=== PATIENT | female | born 1995 ===

== ENCOUNTER 2025-07-27 07:03 | Inpatient (IN) | payer OTHER ==
[2025-07-27] MEDS ORDERED: Bicitra 30 ML UDCUP PO PRN (07:38)
[2025-07-27] MEDS ORDERED: Ondansetron PF 4 MG/2 ML Vial IVP PRN ×4 (07:38→15:03)
[2025-07-27] MEDS ORDERED: Famotidine/PF 20 mg/2ml Vial SLOW IVP PRN (07:38)
[2025-07-27] MEDS ORDERED: Oxytocin 30 units/NS 500 ML 500 ML IV SCH ×2 (07:38→15:03)
[2025-07-27 07:43] VITALS: BMI 43.2
[2025-07-27 08:14] LABS: Hematocrit 37.4 % (34.9-44.5); Hemoglobin 11.8 g/dL (12.0-15.5); Mean Corpuscular Hemoglobin 25.5 pg (27.0-33.0); Mean Corpuscular Volume 80.8 fL (81.6-98.3); Platelet Count 271 10x3/uL (150-450); Red Blood Cell (RBC) Count 4.63 10x6/uL (3.90-5.03); White Blood Cell (WBC) Count 7.84 10x3/uL (3.5-10.5)
[2025-07-27 08:25] LABS: ALT (SGPT) 8 U/L (Less than 34); AST (SGOT) 17 U/L (11-34); Albumin 2.9 g/dL (3.1-4.5); Alkaline Phosphatase 215 U/L (40-110); Anion Gap 14 mmol/L (10-20); BUN (Urea Nitrogen) 12 mg/dL (7.0-18.7); Bilirubin, Total 0.2 mg/dL (0.3-1.2); Calc. Creatinine Clearance 238 mL/min (70-130); Calcium 8.7 mg/dL (7.8-10.44); Carbon Dioxide 21 mmol/L (22-29); Chloride 107 mmol/L (98-107); Globulin 3.1 g/dL (2.4-3.5); Glucose 146 mg/dL (70-105); Potassium 4.5 mmol/L (3.5-5.1); Sodium 137 mmol/L (136-145)
[2025-07-27 08:45] LABS: Syphilis Antibody Index 0.04 S/CO (<1.00 Non-Reactive)
[2025-07-27 08:46] LABS: Hep B Surf Ag - L&D Non-Reactive S/CO (NonReactive)
[2025-07-27] MEDS ORDERED: HYDROmorphone 0.5 MG/0.5 ML SYRINGE SLOW IVP PRN (10:38)
[2025-07-27] MEDS ORDERED: diphenhydrAMINE 50 MG/ML VIAL IVP PRN (10:38)
[2025-07-27] MEDS ORDERED: Meperidine HCl/PF 25 MG (1 mL) VIAL SLOW IVP PRN (10:38)
[2025-07-27] MEDS ORDERED: Communication Order-Pharmacy FS SCH (10:45)
[2025-07-27] MEDS: hydrALAZINE 20 MG/ML VIAL SLOW IVP PRN (11:23)
[2025-07-27] MEDS: Ketorolac Tromethamine 30 MG (1 mL) VIAL IVP SCH (12:51)
[2025-07-27] MEDS: NIFEdipine XL 30 MG ER.TAB PO SCH (12:52)
[2025-07-27] MEDS ORDERED: hydrALAZINE 20 MG/ML VIAL SLOW IVP PRN ×3 (13:45→15:03)
[2025-07-27] MEDS ORDERED: NIFEdipine 10 MG CAP PO PRN ×2 (13:45)
[2025-07-27] MEDS ORDERED: Dextrose 50% Abboject 50 ML SYRINGE SLOW IVP PRN (15:03)
[2025-07-27] MEDS ORDERED: Lanolin Ointment 7 GM TUBE TOP PRN (15:03)
[2025-07-27] MEDS ORDERED: Bisacodyl 10 MG SUPP PR PRN (15:03)
[2025-07-27] MEDS ORDERED: Glucagon 1 MG/ML KIT IM PRN (15:03)
[2025-07-27] MEDS ORDERED: diphenhydrAMINE 25 MG CAP PO PRN (15:03)
[2025-07-27] MEDS: PHENYLEPHRINE-NS 100 MCG/ML 10 ML SYRINGE ONE (16:56)
[2025-07-27] MEDS: NIFEdipine 10 MG CAP ONE (16:57)
[2025-07-27] MEDS ORDERED: HYDROcodone/Acetaminophen 5/325 mg Tablet PO PRN (22:46)
[2025-07-28] MEDS: Ferrous Sulfate 325 MG TAB PO SCH (03:06)
[2025-07-28] MEDS: Ketorolac Tromethamine 30 MG (1 mL) VIAL IVP PRN (05:00)
[2025-07-28] MEDS: NIFEdipine XL 30 MG ER.TAB PO SCH (08:30)
[2025-07-28] MEDS ORDERED: NIFEdipine XL 30 MG ER.TAB PO SCH (09:00)
[2025-07-28] MEDS: Ibuprofen 800 MG TAB PO SCH (16:05)
[2025-07-28] MEDS: HYDROcodone/Acetaminophen 5/325 mg Tablet PO PRN (19:41)
[2025-07-28] MEDS: Simethicone Chewable 80 MG TAB PO PRN (19:41)
[2025-07-28] MEDS: Lantus 1000 UNITS/10 ML VIAL SC SCH (21:54)
[2025-07-29] MEDS: NIFEdipine XL 30 MG ER.TAB PO SCH (10:51)
[2025-07-29] MEDS ORDERED: Acetaminophen 500 MG TAB PO PRN (22:48)
[2025-07-30 07:46] VITALS: TEMP 98.2
[2025-07-30 11:28] VITALS: BP 146/96
[2025-07-30] MEDS: NIFEdipine XL 30 MG ER.TAB PO SCH (11:34)
== END 2025-07-30 11:45 | disposition home or self-care (01) | DRG 788 ==
LOC: UNDOADMIN 07:03 → CSHLD 07:03 → CSHPP 15:07
PROVIDERS: ADMIT Obstetrics & Gynecology; ATTEND Obstetrics & Gynecology
PROC: 4A1HXCZ Monitoring of Products of Conception, Cardiac Rate, External Approach (ICD-10-PCS; principal; 2025-07-27)
PROC: 3E03329 Introduction of Other Anti-infective into Peripheral Vein, Percutaneous Approach (ICD-10-PCS; 2025-07-27)
PROC: 10D00Z1 Extraction of Products of Conception, Low, Open Approach (ICD-10-PCS; 2025-07-27)
DX: O11.4 Pre-existing hypertension with pre-eclampsia, complicating childbirth (principal); O24.12 Pre-existing type 2 diabetes mellitus, in childbirth; O34.211 Maternal care for low transverse scar from previous cesarean delivery; O36.63X0 Maternal care for excessive fetal growth, third trimester, not applicable or unspecified; O99.214 Obesity complicating childbirth; O36.8330 Maternal care for abnormalities of the fetal heart rate or rhythm, third trimester, not applicable or unspecified; Z37.0 Single live birth; Z79.899 Other long term (current) drug therapy; Z3A.37 37 weeks gestation of pregnancy; Z91.199 Patient's noncompliance with other medical treatment and regimen due to unspecified reason; Z79.4 Long term (current) use of insulin; Z98.890 Other specified postprocedural states
CPT/HCPCS: 36415; 36416; 51702; 80053; 85027; 86780; 86850; 86900; 86901; 87340; J0360; J1815; J1885; J2274; J2550; J7120